=== PATIENT | female | born 1995 | race Caucasian/White ===

== ENCOUNTER 2018-07-20 13:46 | Inpatient (IN) ==
[2018-07-20] MEDS ORDERED: ceFAZolin SODIUM/DEXTROSE,ISO 2 GM/50 ML BAG IV ONE (15:17)
[2018-07-20] MEDS ORDERED: RINGER'S SOLUTION,LACTATED 1,000 ML IV PRN (15:17)
[2018-07-20] MEDS ORDERED: OXYTOCIN 20 UNITS in RINGER'S SOLUTION,LACTATED 1,000 ML IV ONE ×2 (15:17→16:43)
--- NOTE | 2018-07-20 15:17 | HP ---
Chief Complaint - Chief Complaint Date of Service: 07/20/18 Time of Service: 15:04 Chief Complaint: decreased movement, abdomen tightening History of Present Illness: The patient presented to triage complaining of decreased movement for 3 days but the decreased movement is worsening beginning at 0900 today. She denies LOF or VB. Reports her abdomen is rock hard and is not relaxing in between ctx. No other concerns today. Medical History (Last Updated 07/20/18 @ 15:16 by Michelle Pearson MD) delivery delivered (Acute) delivery delivered No pertinent past medical history No pertinent past medical history Surgical History: Surgical History (Last Updated 07/20/18 @ 15:15 by Michelle Pearson MD) No pertinent past surgical history Social History: Preferred Language Tristanian Smoker 1 ppd No drugs or alcohol use Review Of Systems (GEN) - Review of Systems Misc: All systems neg except as marked Allergies/Adverse Reactions: Allergies Allergy/AdvReac Type Severity Reaction Status Date / Time nystatin Allergy Verified 07/20/18 14:12 Home Medications: HOME MEDICATIONS Ferrous Sulfate [Iron] 325 mg PO DAILY 07/20/18 [Last Taken Unknown] Vits96/Iron Fum/Folic [ S] 1 tab PO DAILY 07/20/18 [Last Taken Unknown] Exam - Exam Constitutional: Present: Alert, Oriented x3, Cooperative, No distress Respiratory: Present: chest non-tender, lungs clear, normal breath sounds Cardiovascular/Chest: Present: regular rate, rhythm, no murmur Abdomen: Present: Normal bowel sounds, nontender - Abdomen palpates hard with no relaxation of the uterus Extremity: Present: non-tender, normal inspection, no pedal edema, no calf tenderness Skin Exam: Present: normal color, warm/dry, no cyanosis Appearance: Present: appropriate appearance Eye contact: Present: cooperative Thoughts: Present: normal thought pattern Assessment/Plan - Narrative Narrative: 23 year old @ 37w 4d with decreased movement, initial abruption pattern on TOCO and uterus not relaxing in between ctx. The patient and her spouse are counseled that given 3 day history of DFM and ctx pattern the risks of continuing the exceed the risk of delivery. Proceed with repeat delivery and bilateral salpingectomy. All risks, benefits, and alternatives of the procedure were explained to the patient and the patient consented to the procedure.
--- NOTE | 2018-07-20 15:38 | ANES ---
Anesthesia Pre Procedure Eval Vitals/Labs: Last Vital Signs Temp 36.7 C 07/20/18 15:14 Pulse 108 H 07/20/18 15:14 Resp 20 07/20/18 15:14 BP 121/71 07/20/18 15:14 Pulse Ox 99 07/20/18 15:14 HOME MEDICATIONS Ferrous Sulfate [Iron] 325 mg PO DAILY 07/20/18 [Last Taken Unknown] Vits96/Iron Fum/Folic [ S] 1 tab PO DAILY 07/20/18 [Last Taken Unknown] Allergies/Adverse Reactions: Allergies Allergy/AdvReac Type Severity Reaction Status Date / Time nystatin Allergy Verified 07/20/18 14:12 - Planned Procedure Planned Procedure: Medication List Reviewed:: Yes Allergies Verified: Yes Medical History (Last Reviewed 07/20/18 @ 15:37 by Elan Aleman CRNA) delivery delivered (Acute) delivery delivered No pertinent past medical history No pertinent past medical history Surgical History (Last Reviewed 07/20/18 @ 15:37 by Elan Aleman CRNA) No pertinent past surgical history Family History (Last Reviewed 07/20/18 @ 15:37 by Elan Aleman CRNA) Grandmother Diabetes Grandfather Diabetes Mother Hypertension Grandmother Hypertension - Family Anesthesia History Family History:: no untoward family reactions to anesthesia - Airway/Neck/Teeth Within Normal Limits:: Yes Teeth Condition: Intact Denture Type: None Neck Exam: full range of motion, normal inspection Mallampatti Score: 1 Thyromental (T-M) distance: > 6 cm Mandibulo Hyoid distance: > 3 cm - Respiratory Respiratory: lungs clear, no respiratory distress Smoking Status: Current every day smoker Discussed smoking cessation including day of surgery: Yes Sleep Apnea currently treated: No Sleep Apnea by current assessment: No - Cardiovascular Patient History - Cardiac/Respiratory: No pertinent hx Tolerates Activity: Good Heart Sounds: S1 & S2, Regular - Anesthesia Assessment and Plan ASA Class: PS, II, E Anesthesia Type Plan: Spinal - Bilat TAP block for postop analgesia
[2018-07-20 15:43] LABS: Hematocrit 33.1 % (37.0-47.0); Hemoglobin 11.4 gm/dL (12.5-16.0); Mean Cell Volume 90.7 fl (78-100); Mean Corpuscular Hemoglobin 31.2 pg (27-31); Mean Corpuscular Hgb Conc 34.4 g/dl (32-36); Mean Platelet Volume 11.2 fl (8-12.5); Neutrophil # 13.4 K/mm3 (1.3-6.0); Neutrophil % 74.7 % (42-75.0); Platelet Count 207 K/mm3 (150-450); Red Blood Count 3.65 M/mm3 (4.2-5.4); Red Cell Distribution Width 12.8 % (11.5-14.0); White Blood Count 17.9 K/mm3 (4.0-10.5)
[2018-07-20 16:00] LABS: Cocaine Ur Negative (NEGATIVE); Urine Barbiturate Negative (NEGATIVE); Urine Benzodiazepines Negative (NEGATIVE); Urine Opiates Negative (NEGATIVE); Urine PCP Negative (NEGATIVE); Urine THC Negative (NEGATIVE)
[2018-07-20] MEDS ORDERED: diphenhydrAMINE HCL 25 MG CAPSULE PO PRN (16:43)
[2018-07-20] MEDS ORDERED: ONDANSETRON HCL/PF 2 MG/ML VIAL IV PRN (16:43)
[2018-07-20] MEDS ORDERED: SENNOSIDES 8.6 MG TABLET PO PRN (16:43)
[2018-07-20] MEDS ORDERED: HYDROcodone/ACETAMINOPHEN 1 EACH TABLET PO PRN (16:43)
[2018-07-20] MEDS ORDERED: SIMETHICONE 80 MG TAB.CHEW PO PRN (16:43)
[2018-07-20] MEDS ORDERED: BISACODYL 10 MG SUPP.RECT RC PRN (16:43)
[2018-07-20] MEDS ORDERED: RINGER'S SOLUTION,LACTATED 1,000 ML IV ONE (16:43)
--- NOTE | 2018-07-20 17:00 | OR ---
Operative Report - Dictated Report Narrative: Date of delivery: 07/20/2018 Time of delivery: 1617 Gender: male weight: 3382 grams APGARS: 9 Preoperative diagnosis: IUP @ 37 w 4 d, decreased movement, polyhydramnios, suspected placental abruption Postoperative diagnosis: same Procedure: repeat delivery, bilateral salpingectomy Surgeon: Dr. Pearson Anesthesia: spinal Anesthesiologist: Maurisio Aleman CRNA Indications for the procedure: The patient is a 23 year old @ 37w 4d who presented to L&D with decreased movement for 3 days and abdominal pain with contractions without uterine relaxation with suspicion for placental abruption. All risks, benefits, and alternatives of the procedure were explained to the patient and the patient consented to the procedure. Description of the procedure: The patient was taken to the operating room where spinal anesthesia was induced. She was then prepped and draped in the supine position in the standard surgical fashion. Attention was then turned to the abdomen. A Pfannestiel skin incision was made and the incision was carried through the subcutaneous tissue. The fascia was incised in the midline. In the midline the fascia led directly to the peritoneum and into the abdomen. The fascia was dissected from the underlying rectus muscle. The peritoneum was already open as above. The lower uterine segment was incised in a low transverse fashion. The head was delivered atraumatically with the assistance of a vacuum. The rest of the was delivered atraumatically. The umbilical cord was clamped and cut and the infant was handed off the pediatric staff. Cord blood was collected. The placenta was delivered by expression. The uterus was cleared of all clots and debris. The uterine incision was closed with 0-vicryl in a running, locking fashion. The left fallopian tube was identified by following it to the fimbriated end. The fallopian tube was cut along the mesosalpinx all the way to the cornual region. The same procedure was repeated on the right to complete a bilateral salpingectomy. Hemostasis was adequate. The fascia was closed with 1-0 vicryl. The skin was closed with 3-0 monocryl on a Branden needle. Dermabond was placed over the incision. All sponge, lap, and needle counts are correct. The patient tolerated the procedure well. She was transferred to the recovery room in stable condition. EBL: 600 mL Complications: none Specimens: placenta, fallopian tubes Definition: * The number of deliveries resulting in a live the patient experienced prior to current hospitalization * The previous delivery of live twins or any live multiple gestation is considered one live event. *If primagravida or nulliparous is documented select zero for the number of previous live births. Live births: 2
--- NOTE | 2018-07-20 17:13 | ANES ---
Post Anesthesia Discharge - Transfer of Care Transfer of Care handoff given to nurse: Yes - Discharge from PACU Discharge from PACU when meets criteria: Yes
--- NOTE | 2018-07-20 17:18 | ANES ---
Anesthesia Procedure Note Procedure Note: ANESTHESIA PROCEDURE NOTE Date of procedure:[]. 07/20/2018 Time of procedure:[]. 1654 Performed by: Maurisio Aleman CRNA Mining Technician: [] Angela Palomino RN . Preprocedure diagnosis: []. Repeat . Desire for postoperative analgesia. Post procedure diagnosis: Same. Procedure:[] Ultrasound-guided bilateral tap block Indications: []. Postoperative analgesia Findings: [] Patient was brought to the PACU and placed in a supine position. Patients right abdominal wall was prepped with ChloraPrep. A 20-gauge 4 inch regional block needle was advanced under ultrasound guidance until tip of needle was placed just anterior to fascial layer between the internal oblique and trans-abdominus muscles. A total of 20 mL of 0.25% Marcaine with epinephrine 1 200,000 was injected with adequate spread of local anesthesia noted. Procedure was then repeated on patient's left side. EBL: Minimal. Fluids: N/A. Specimen: N/A. Post procedure condition: The patient tolerated the procedure well. No complications were noted. Thank you for this consultation Maurisio Aleman CRNA
--- NOTE | 2018-07-20 17:18 | ANES ---
Post Anesthesia Assessment - Vital Signs Vitals: Last Vital Signs Temp 36.4 C 07/20/18 17:15 Pulse 103 H 07/20/18 17:15 Resp 20 07/20/18 17:15 BP 125/52 07/20/18 17:15 Pulse Ox 100 07/20/18 17:15 Airway Patency: Normal - Mental Status Level Of Consciousness: Awake - Pain Level Pain Score: 3 - N/V Assessment Nausea/Vomiting Presence: None Dehydration:: No
[2018-07-20] MEDS: IBUPROFEN 800 MG TABLET PO PRN (17:47)
[2018-07-20] MEDS: HYDROcodone/ACETAMINOPHEN 1 EACH TABLET PO PRN ×2 (17:47→21:07)
[2018-07-20] MEDS: DOCUSATE SODIUM 100 MG CAPSULE PO SCH (21:09)
[2018-07-21] MEDS: HYDROcodone/ACETAMINOPHEN 1 EACH TABLET PO PRN ×5 (01:18→19:16)
[2018-07-21] MEDS: IBUPROFEN 800 MG TABLET PO PRN ×4 (01:18→20:36)
--- NOTE | 2018-07-21 08:04 | PN ---
Subjective - Date and Time Seen Date: 07/21/18 Time: 08:02 Subjective Narrative: Pt without complaints Objective Objective Narrative: See vital signs - Review of Systems Generalized/Overall Review: Reports: No Symptoms Reported Misc: All systems neg except as marked - Vitals Vitals: Last Vital Signs Temp 36.4 C 07/21/18 06:45 Pulse 85 07/21/18 06:45 Resp 20 07/21/18 06:45 BP 113/70 07/21/18 06:45 Pulse Ox 98 07/21/18 06:45 - Abnormal Lab Findings Abnormal Lab Findings: Abnormal Lab Results 07/20/18 Range/Units 15:35 WBC 17.9 H (4.0-10.5) K/mm3 RBC 3.65 L (4.2-5.4) M/mm3 Hgb 11.4 L (12.5-16.0) gm/dL Hct 33.1 L (37.0-47.0) % MCH 31.2 H (27-31) pg Immature Gran % (Auto) 1.30 H (0.001-0.429) % Immature Gran # (Auto) 0.23 H (0.000-0.0310) K/mm3 Lymphocytes % 17.6 L (20-51) % Neutrophils # 13.4 H (1.3-6.0) K/mm3 - Exam Constitutional: Present: Alert, Oriented x3, Cooperative, No distress Abdomen: Present: soft, nontender, nondistended - Incision c/d/i Extremity: Present: non-tender, no calf tenderness, pedal edema Skin Exam: Present: normal color, warm/dry, no cyanosis Appearance: Present: appropriate appearance Eye contact: Present: cooperative Thoughts: Present: normal thought pattern Cauti Physician Documentation - Urinary Catheter Management Urethral (Lamar) Urethral Indwelling: No Date of Insertion: 07/20/18 Time of Insertion: 15:52 Date of Removal: 07/21/18 Time of Removal: 04:40 Assessment/Plan Plan Narrative: POD 1 s/p repeat C/S, bilateral salpingectomy Doing well Discharge POD 3
[2018-07-21] MEDS: DOCUSATE SODIUM 100 MG CAPSULE PO SCH ×2 (10:38→20:36)
[2018-07-22] MEDS: IBUPROFEN 800 MG TABLET PO PRN ×2 (02:29→09:41)
[2018-07-22] MEDS: HYDROcodone/ACETAMINOPHEN 1 EACH TABLET PO PRN ×2 (02:30→07:05)
[2018-07-22 06:59] VITALS: BP 102/56
--- NOTE | 2018-07-22 08:18 | PN ---
Subjective - Date and Time Seen Date: 07/22/18 Time: 08:17 Subjective Narrative: Pt without complaints Objective Objective Narrative: See vital signs - Review of Systems Generalized/Overall Review: Reports: No Symptoms Reported Misc: All systems neg except as marked - Vitals Vitals: Last Vital Signs Temp 36.8 C 07/22/18 06:59 Pulse 71 07/22/18 06:59 Resp 18 07/22/18 06:59 BP 102/56 07/22/18 06:59 Pulse Ox 99 07/22/18 06:59 - Exam Constitutional: Present: Alert, Oriented x3, Cooperative, No distress Abdomen: Present: soft, nontender, nondistended - Incision c/d/i Extremity: Present: non-tender, no calf tenderness, pedal edema Skin Exam: Present: normal color, warm/dry, no cyanosis Appearance: Present: appropriate appearance Eye contact: Present: cooperative Thoughts: Present: normal thought pattern Cauti Physician Documentation - Urinary Catheter Management Urethral (Lamar) Urethral Indwelling: No Date of Insertion: 07/20/18 Time of Insertion: 15:52 Date of Removal: 07/21/18 Time of Removal: 04:40 Assessment/Plan Plan Narrative: POD 2 s/p repeat delivery and salpingectomies Doing well Desires discharge
[2018-07-22] MEDS: DOCUSATE SODIUM 100 MG CAPSULE PO SCH (09:42)
== END 2018-07-22 13:00 | disposition home or self-care (01) | DRG 785 ==
LOC: OBCLINIC 13:46 → OB 15:05
PROVIDERS: ADMIT Obstetrics & Gynecology; ATTEND Obstetrics & Gynecology
CPT/HCPCS: 36415; 59025; 80307; 85025; 86850; 86900; 88302; 88307; G0479